=== PATIENT | female | born 1985 | race Two or more races ===

== ENCOUNTER 2020-10-12 17:16 | Outpatient (CLI) | payer OTHER ==
[2020-10-13] MEDS ORDERED: ZOLOFT100 MG PO (10:32)
[2020-10-13] MEDS ORDERED: CLONAZEPAM0.5 MG PO (10:32)
== END 2020-10-12 17:27 | disposition home or self-care (01) ==
LOC: LAB 17:16
PROVIDERS: ATTEND Obstetrics & Gynecology Maternal & Fetal Medicine
DX: Z34.81 Encounter for supervision of other normal pregnancy, first trimester (principal)

== ENCOUNTER 2020-10-13 10:33 | Day surgery (SDC) | payer OTHER ==
[~2020-10-13 10:33] MED LIST: CLONAZEPAM0.5 MG PO; ZOLOFT100 MG PO
== END 2020-10-13 18:50 | disposition home or self-care (01) ==
LOC: CIR.AMB 10:33
PROVIDERS: ATTEND Obstetrics & Gynecology
DX: O00.101 Right tubal pregnancy without intrauterine pregnancy (principal); Z20.822 Contact with and (suspected) exposure to COVID-19

== ENCOUNTER 2024-11-25 07:54 | Day surgery (SDC) | payer OTHER ==
[2024-11-24 14:46] LABS: ALBUMIN 4.1 gm/dL (3.4-5.0); BILIRUBIN TOTAL 0.54 mg/dL (0.3-1.2); CREATININE SERUM 0.7 mg/dL (0.55-1.02); GFR 93.65; GLOBULINA 3.1 G/DL (2.4-3.5); POTASSIUM 5.27 mEq/L (3.5-5.1); TOTAL PROTEIN 7.2 gm/dL (6.4-8.2)
[2024-11-24 14:47] LABS: BASO % 0.4 % (0.1-1.2); EOS # 0.07 (0.04-0.54); EOS % 1.3 % (0.7-7.0); HEMATOCRIT 40.1 % (34.1-44.9); HEMOGLOBIN 13.4 g/dL (11.2-15.7); LYMPH # 1.99 (1.18-3.74); LYMPH % 37.7 % (19.3-53.1); MEAN CORPUSCULAR HEMOGLOBIN 30.3 pg (25.6-32.2); MONO # 0.39 (0.24-0.82); MONO % 7.4 % (4.7-12.5); NEUT # 2.77 (1.56-6.13); NEUT % 52.4 % (34.0-71.1); PLATELET COUNT 332 K/uL (163-369); RED BLOOD COUNT 4.42 M/uL (3.93-5.22); RED CELL DISTRIBUTION WIDTH 13.2 % (11.6-14.4)
[2024-11-24 14:56] LABS: PARTIAL THROMBOPLASTIN TIME 27.4 SECONDS (22.0-34.0); PROTHROMBIN TIME 10.9 SECONDS (9.0-11.5)
[~2024-11-25 07:54] MED LIST changes: +EFFEXOR XR150 MG; +RESTORIL30 M1 PO
[2024-11-25] MEDS ORDERED: CEFAZOLIN SODIUM 1,000 MG VIAL ONE (08:30)
[2024-11-25] MEDS ORDERED: POVIDONE-IODINE 118 ML BOTT TOP ONE (08:44)
[2024-11-25] MEDS ORDERED: MORPHINE SULFATE 4 MG/ML VIAL IV ONE (11:50)
[2024-11-25] MEDS ORDERED: MORPHINE SULFATE 4 MG/ML VIAL IV PRN (13:15)
[2024-11-25] MEDS ORDERED: PROMETHAZINE HCL 50 MG/ML AMPUL IM ONE (13:15)
[2024-11-25] MEDS ORDERED: CEFAZOLIN SODIUM 1,000 MG VIAL IV ONE (16:45)
== END 2024-11-25 15:25 | disposition home or self-care (01) ==
LOC: CIR.AMB 07:54
PROVIDERS: ATTEND Obstetrics & Gynecology
DX: O00.112 Left tubal pregnancy with intrauterine pregnancy (principal)